=== PATIENT | male | born 1965 | race Caucasian/White ===

== ENCOUNTER 2018-02-02 16:38 | Observation (INO) | payer OTHER ==
[~2018-02-02] VITALS: Ht 175.3 cm; Wt 97.0 kg
[2018-02-02 17:12] LABS: HEMATOCRIT 48.1 % (38.0-50.0); HEMOGLOBIN 17.2 G/DL (12.5-16.6); MCH 31.3 PG (29.0-34.0); MCHC 35.8 G/DL (30.0-36.0); MCV 87.6 FL (86-99); PLATELET COUNT 175 K/uL (156-360); RBC DIS.WIDTH-CV 12.9 % (11.8-14.6); RBC DIS.WIDTH-SD 41.3 % (39-53); RED BLOOD COUNT 5.49 M/uL (4.00-5.50); WHITE BLOOD COUNT 8.7 K/uL (4.1-10.2)
[2018-02-02 17:25] LABS: ALBUMIN 4.5 g/dL (3.2-4.8); CHLORIDE 105 mEq/L (99-109); POTASSIUM 4.2 mEq/L (3.7-5.4); SODIUM 137 mEq/L (136-147)
[2018-02-02 17:27] LABS: GLUCOSE 105 mg/dL (70-99)
[2018-02-02 17:28] LABS: TOTAL PROTEIN 7.6 g/dL (6.4-8.3)
[2018-02-02 17:29] LABS: TOTAL BILIRUBIN 0.6 mg/dL (0.0-1.0)
[2018-02-02 17:31] LABS: ALKALINE PHOSPHATASE 60 IU/L (3-129); CREATININE 1.3 mg/dL (0.6-1.3); GFR ESTIMATE (CALCULATED) > 59 mL/min/ (58.99-99999)
[2018-02-02 17:32] LABS: UREA NITROGEN (BUN) 20 mg/dL (9-23)
[2018-02-02 17:33] LABS: AST (GOT) 29 IU/L (2-34)
[2018-02-02 17:34] LABS: ALT (GPT) 50 IU/L (3-49); LIPASE 59 U/L (1.0-51.0)
[2018-02-02 17:35] LABS: TROP-I INTERPRETATION NEGATIVE; TROPONIN-I 0.02 ng/mL (0.0-0.30)
[2018-02-02] MEDS ORDERED: COREG12.5 M1 PO (19:21)
[2018-02-02] MEDS ORDERED: PRINIVIL20 MG PO (19:21)
[2018-02-02] MEDS ORDERED: LIPITOR40 MG PO (19:21)
[2018-02-02] MEDS ORDERED: OMEPRAZOLE40 M1 PO (19:21)
[2018-02-02] MEDS ORDERED: CIALIS20 MG PO (19:22)
[2018-02-02] MEDS ORDERED: MEN'S MULTI-VI1 EACH PO (19:22)
[2018-02-02] MEDS ORDERED: LO-DOSE ASPIRIN81 M1 PO (19:22)
[2018-02-02] MEDS ORDERED: TYLENOL EXTRA500 MG PO (19:23)
[2018-02-02 21:30] VITALS: BP 119/70
[2018-02-03 04:20] VITALS: BP 103/55
[2018-02-03 07:42] LABS: TROP-I INTERPRETATION NEGATIVE; TROPONIN-I < 0.01 ng/mL (0.0-0.30)
== END 2018-02-03 15:37 | disposition home or self-care (01) ==
LOC: EME 16:38 → EDOF 20:38 → ENRESERV 20:41 → 4SOUTH 21:33 → ENPENDDIS 02-03 → 4SOUTH 02-03 15:37
PROVIDERS: Internal Medicine; Physician Assistant
DX: R07.9 Chest pain, unspecified (principal); K52.9 Noninfective gastroenteritis and colitis, unspecified; I10 Essential (primary) hypertension; I25.10 Atherosclerotic heart disease of native coronary artery without angina pectoris; E78.5 Hyperlipidemia, unspecified; Z87.891 Personal history of nicotine dependence
CPT/HCPCS: 71046; 74177; 80053; 81003; 83690; 84484; 85027; 93005; 99281; 99284; G0378; J2405; J7030